=== PATIENT | female | born 1950 | race Caucasian/White ===

== ENCOUNTER 2017-03-11 14:11 | Emergency (ER) | payer MEDICARE, BC ==
[~2017-03-11] VITALS: Ht 162.6 cm; Wt 80.0 kg
[~2017-03-11 14:11] MED LIST: ASPIRIN CHEWABL81 MG PO; ASPIRIN LOW DOS81 MG PO; BACTRIM DS1 TAB PO; BENECAR PO; BENICAR40 MG OR; BENICAR40 MG PO; CIPRO XR500 MG PO; CLARITIN10 M1 PO; CLINDAMYCIN HC150 MG PO; DOCUSATE SOD100 MG PO; FIORICET PO; FIORINA1 PO; FISH OIL DOUB1200 MG PO; FISH OIL MAXI1200 M1; FISH OIL1000 MG; FISH OIL1000 MG PO; FLAGYL500 MG PO; FLEXERIL PO; FLONASE NASAL50 MCG; LISINOPRIL20 MG PO; LOPRESSOR25 M1 PO; LOPRESSOR50 MG PO; LYRICA75 MG PO; Levaquin OR; METOPROL TAR100 MG PO; METOPROL TAR50 MG PO; METOPROLOL50 MG OR; MICARDIS HCT PO; MIRALAX3350 N1 PO; MULTIVITAMIN PO; NEXIUM40 M1 PO; NITROQUICK0.3 MG SL; NORCO1 TA1 PO; ONDANSETRON4 MG OR; PCE500 MG OR; PROCARDIA XL30 MG PO; PROTONIX40 M2 OR; PROTONIX40 M2 PO; REGLAN10 MG OR; REGLAN5 MG OR; ROBITUSSIN200 MG/10 PO; SIMVASTATIN20 MG OR; STOOL SOFTENER100 MG OR; ZANTAC 150 MAX150 MG PO; ZITHROMAX250 MG PO; [UNRECOGNIZED DRUG - OTHER] PO
[2017-03-11 15:17] LABS: HEMATOCRIT 43.1 % (37.0-47.0); HEMOGLOBIN 14.8 g/dl (12.0-16.0); IMMATURE GRANULOCYTES 0.3 % (0.0-1.0); MEAN CELL VOLUME 91.1 fL CALC (80.0-100.0); MEAN CORPUSCULAR HGB 31.3 pG CALC (26.0-32.0); MEAN CORPUSCULAR HGB CONC 34.3 g/L CALC (32.0-36.0); NEUT# 4.92 thou/uL (2.00-7.15); RED BLOOD COUNT 4.73 mill/uL (4.20-5.60); RED CELL DISTRI WIDTH 12.6 % (11.5-15.5)
[2017-03-11 15:44] LABS: PROTHROMBIN TIME 11.2 SECONDS (9.0-12.5)
[2017-03-11 15:54] LABS: ALBUMIN 4.2 g/dL (3.2-5.0); ALKALINE PHOSPHATASE 115 u/l (38-126); AMYLASE 76 u/l (30-110); ANION GAP 15 (6-22 (CALC)); BILIRUBIN, TOTAL 0.5 mg/dL (0.0-1.4); BUN 10 mg/dL (8-23); BUN/CREATININE RATIO 14 (12-20 (CALC)); CALCIUM 9.6 mg/dL (8.4-10.2); CARBON DIOXIDE 24 mmol/l (22-30); CHLORIDE 106 mmol/l (95-108); CREATININE 0.7 mg/dL (0.5-1.0); ETHYL ALCOHOL 0 mg/dl (0-30); GFR > 60 ML/MIN (>=60 (CALC)); GFR FOR AFR.AMER. > 60 ML/MIN (>=60 (CALC)); GLUCOSE 105 mg/dL (82-115); LIPASE 171 u/l (23-300); POTASSIUM 3.8 mmol/l (3.5-5.1); SGOT/AST 37 u/l (9-36); SGPT/ALT 43 u/l (11-66); SODIUM 140 mmol/l (137-146); TOTAL PROTEIN 8.2 g/dL (6.3-8.2)
[2017-03-11 16:05] LABS: MYOGLOBIN 37 ng/mL (0 - 62)
[2017-03-11 16:08] LABS: URINE BILIRUBIN - DIPSTICK NEGATIVE (NEGATIVE); URINE BLOOD DIPSTICK TRACE-INTACT (NEGATIVE); URINE CLARITY CLEAR; URINE COLOR YELLOW; URINE GLUCOSE - DIPSTICK NEGATIVE (NEGATIVE); URINE KETONE NEGATIVE (NEGATIVE); URINE LEUK ESTERASE NEGATIVE (NEGATIVE); URINE NITRITE - DIPSTICK NEGATIVE (Negative); URINE PROTEIN - DIPSTICK NEGATIVE (NEG-TRACE); URINE UROBILINOGEN - DIPSTICK 0.2 E.U./dL (0.2)
[2017-03-11 16:50] VITALS: BP 163/77
== END 2017-03-11 16:55 | disposition home or self-care (01) ==
LOC: ED 14:11
PROVIDERS: Emergency Medicine
DX: K64.4 Residual hemorrhoidal skin tags (principal); I10 Essential (primary) hypertension; E10.9 Type 1 diabetes mellitus without complications; E78.5 Hyperlipidemia, unspecified; Z86.19 Personal history of other infectious and parasitic diseases

== ENCOUNTER 2017-08-05 05:46 | Day surgery (SDC) | payer MEDICARE, BC ==
[~2017-08-05] VITALS: Ht 162.6 cm; Wt 81.6 kg
[~2017-08-05 05:46] MED LIST changes: +OMEPRAZOLE20 M2 PO; +STOOL SOFTENER100 MG PO
[2017-08-05 08:17] VITALS: BP 142/63
== END 2017-08-05 08:37 | disposition home or self-care (01) ==
LOC: ENDO 05:46 → ORM 10:25 → ENDO 10:25 → ORM 11:15
PROVIDERS: ATTEND Surgery
PROC: 0DB78ZX Excision of Stomach, Pylorus, Via Natural or Artificial Opening Endoscopic, Diagnostic (ICD-10-PCS; principal; 2017-08-05)
PROC: 0DBP8ZX Excision of Rectum, Via Natural or Artificial Opening Endoscopic, Diagnostic (ICD-10-PCS; 2017-08-05)
DX: R10.13 Epigastric pain (principal); K21.9 Gastro-esophageal reflux disease without esophagitis; Z12.11 Encounter for screening for malignant neoplasm of colon; K29.50 Unspecified chronic gastritis without bleeding; K64.4 Residual hemorrhoidal skin tags; K62.89 Other specified diseases of anus and rectum; I10 Essential (primary) hypertension

== ENCOUNTER → 2018-09-22 | Outpatient (REF) | payer MEDICARE, BC ==
[2018-09-22 11:35] VITALS: BP 201/101
== END | disposition home or self-care (01) ==
LOC: STRESS 09:22 → NUCMED 09:45
PROVIDERS: ATTEND Internal Medicine
DX: I20.9 Angina pectoris, unspecified (principal); E11.9 Type 2 diabetes mellitus without complications; I10 Essential (primary) hypertension
CPT/HCPCS: A9502; J0706; J2785

== ENCOUNTER 2019-02-19 12:26 | Emergency (ER) | payer MEDICARE, BC ==
[~2019-02-19] VITALS: Ht 162.6 cm; Wt 82.0 kg
[2019-02-19] MEDS ORDERED: VITAMIN D1000 UNIT PO (12:45)
[2019-02-19] MEDS ORDERED: NAPROXEN500 MG PO (14:16)
[2019-02-19 14:47] VITALS: BP 148/69
== END 2019-02-19 15:00 | disposition home or self-care (01) ==
LOC: ED 12:26
DX: S33.5XXA Sprain of ligaments of lumbar spine, initial encounter (principal); S81.812A Laceration without foreign body, left lower leg, initial encounter; W17.89XA Other fall from one level to another, initial encounter; Y93.89 Activity, other specified; Y92.009 Unspecified place in unspecified non-institutional (private) residence as the place of occurrence of the external cause; R51 Headache

== ENCOUNTER 2019-03-14 12:23 | Emergency (ER) | payer MEDICARE, BC ==
[~2019-03-14] VITALS: Ht 162.6 cm; Wt 85.0 kg
[~2019-03-14 12:23] MED LIST changes: +NAPROXEN500 MG PO; +VITAMIN D1000 UNIT PO
[2019-03-14 13:56] LABS: HEMATOCRIT 42.2 % (37.0-47.0); HEMOGLOBIN 14.6 g/dl (12.0-16.0); IMMATURE GRANULOCYTES 0.6 % (0.0-5.0); MEAN CELL VOLUME 91.9 fL CALC (80.0-100.0); MEAN CORPUSCULAR HGB 31.8 pG CALC (26.0-32.0); MEAN CORPUSCULAR HGB CONC 34.6 g/L CALC (32.0-36.0); RED BLOOD COUNT 4.59 mill/uL (4.20-5.60); RED CELL DISTRI WIDTH 13.2 % (11.5-15.5)
[2019-03-14 14:52] LABS: ALBUMIN 4.1 g/dL (3.2-5.0); ALKALINE PHOSPHATASE 137 u/l (38-126); ANION GAP 14 (6-22 (CALC)); BUN 12 mg/dL (8-23); BUN/CREATININE RATIO 19 (12-20 (CALC)); CARBON DIOXIDE 22 mmol/l (22-30); CHLORIDE 104 mmol/l (95-108); CREATININE 0.6 mg/dL (0.5-1.0); GFR > 60 ML/MIN (>=60 (CALC)); GFR FOR AFR.AMER. > 60 ML/MIN (>=60 (CALC)); POTASSIUM 3.7 mmol/l (3.5-5.1); SGOT/AST 46 u/l (9-36); SODIUM 137 mmol/l (137-146); TOTAL PROTEIN 7.8 g/dL (6.3-8.2)
[2019-03-14 14:58] LABS: BILIRUBIN, TOTAL 0.9 mg/dL (0.0-1.4)
[2019-03-14 16:51] LABS: URINE BILIRUBIN - DIPSTICK NEGATIVE (NEGATIVE); URINE BLOOD DIPSTICK SMALL (NEGATIVE); URINE COLOR YELLOW; URINE GLUCOSE - DIPSTICK NEGATIVE (NEGATIVE); URINE KETONE NEGATIVE (NEGATIVE); URINE LEUK ESTERASE NEGATIVE (NEGATIVE); URINE NITRITE - DIPSTICK NEGATIVE (Negative); URINE PROTEIN - DIPSTICK NEGATIVE (NEG-TRACE); URINE UROBILINOGEN - DIPSTICK 0.2 E.U./dL (0.2)
[2019-03-14] MEDS ORDERED: ZOFRAN4 MG/TAB PO (16:58)
[2019-03-14] MEDS ORDERED: DICYCLOMINE HYD10 MG PO (16:58)
[2019-03-14] MEDS ORDERED: CIPROFLOXACN500 MG PO (16:58)
[2019-03-14 16:59] LABS: URINE SQUAMOUS EPITHELIAL CELL FEW EPI/hpf (0-FEW); URINE WBC 0-2 WBC/hpf (0-5)
[2019-03-14 17:40] VITALS: BP 151/61
== END 2019-03-14 17:40 | disposition home or self-care (01) ==
LOC: ED 12:23
PROVIDERS: Emergency Medicine
DX: K52.9 Noninfective gastroenteritis and colitis, unspecified (principal); R11.2 Nausea with vomiting, unspecified; R19.7 Diarrhea, unspecified; R50.9 Fever, unspecified; R05 Cough; R00.0 Tachycardia, unspecified
CPT/HCPCS: J0131

== ENCOUNTER 2020-07-09 07:45 | Emergency (ER) | payer MEDICARE, BC ==
[~2020-07-09] VITALS: Ht 160 cm; Wt 79.5 kg
[~2020-07-09 07:45] MED LIST changes: +CIPROFLOXACN500 MG PO; +DICYCLOMINE HYD10 MG PO; +ZOFRAN4 MG/TAB PO
[2020-07-09 08:37] LABS: URINE BLOOD DIPSTICK TRACE-LYSED (NEGATIVE); URINE GLUCOSE - DIPSTICK >=1000 mg/dL (NEGATIVE); URINE KETONE 15 mg/dL (NEGATIVE); URINE LEUK ESTERASE NEGATIVE (NEGATIVE); URINE NITRITE - DIPSTICK NEGATIVE (Negative); URINE PH 5.5 (4.5-8.0); URINE PROTEIN - DIPSTICK TRACE mg/dL (NEG-TRACE); URINE SPECIFIC GRAVITY 1.025; URINE UROBILINOGEN - DIPSTICK 0.2 E.U./dL (0.2)
[2020-07-09 08:39] LABS: URINE BILIRUBIN - DIPSTICK SMALL (NEGATIVE); URINE COLOR DK. YELLOW
[2020-07-09 09:25] LABS: HEMOGLOBIN 14.8 g/dl (12.0-16.0); IMMATURE GRANULOCYTES 0.3 % (0.0-5.0); MEAN CELL VOLUME 93.2 fL CALC (80.0-100.0); MEAN CORPUSCULAR HGB 30.6 pG CALC (26.0-32.0); MEAN CORPUSCULAR HGB CONC 32.9 g/dL CAL (32.0-36.0); NEUT# 6.6 thou/uL (2.00-7.15); RED BLOOD COUNT 4.83 mill/uL (4.20-5.60); RED CELL DISTRI WIDTH 13.2 % (11.5-15.5)
[2020-07-09 09:47] LABS: ALBUMIN 3.9 g/dL (3.2-5.0); ALKALINE PHOSPHATASE 93 u/l (38-126); AMYLASE 87 u/l (30-110); BUN 13 mg/dL (8-23); BUN/CREATININE RATIO 15 (12-20 (CALC)); CHLORIDE 107 mmol/l (95-108); CREATININE 0.8 mg/dL (0.5-1.0); GFR > 60 ML/MIN (>=60 (CALC)); GFR FOR AFR.AMER. > 60 ML/MIN (>=60 (CALC)); LIPASE 299 u/l (23-300); POTASSIUM 4.2 mmol/l (3.5-5.1); SGOT/AST 42 u/l (9-36); SODIUM 135 mmol/l (137-146); TOTAL PROTEIN 7.6 g/dL (6.3-8.2)
[2020-07-09 09:48] LABS: ANION GAP 12 (6-22 (CALC)); BILIRUBIN, TOTAL 1.3 mg/dL (0.0-1.4); CARBON DIOXIDE 20 mmol/l (22-30)
[2020-07-09] MEDS ORDERED: OMEPRAZOLE10 MG PO (09:51)
[2020-07-09] MEDS ORDERED: FARXIGA5 MG PO (09:51)
[2020-07-09] MEDS ORDERED: MAGNESIUM 250 M1 TAB PO (09:52)
[2020-07-09] MEDS ORDERED: B121000 MCG PO (09:58)
[2020-07-09] MEDS ORDERED: CALCIUM + D PO (09:59)
[2020-07-09] MEDS ORDERED: ONDANSETRON4 MG PO (11:23)
[2020-07-09] MEDS ORDERED: ULTRAM50 M1 PO (11:23)
[2020-07-09 11:35] VITALS: BP 152/66
== END 2020-07-09 11:35 | disposition home or self-care (01) ==
LOC: ED 07:45
PROVIDERS: Emergency Medicine
DX: R10.32 Left lower quadrant pain (principal); G43.909 Migraine, unspecified, not intractable, without status migrainosus; M47.816 Spondylosis without myelopathy or radiculopathy, lumbar region; E11.9 Type 2 diabetes mellitus without complications; Z20.828 Contact with and (suspected) exposure to other viral communicable diseases
CPT/HCPCS: Q9967

== ENCOUNTER 2021-11-26 07:15 | Day surgery (SDC) | payer MEDICARE, BC ==
[~2021-11-26] VITALS: Ht 162.6 cm; Wt 84.4 kg
[~2021-11-26 07:15] MED LIST changes: +B121000 MCG PO; +CALCIUM + D PO; +FARXIGA5 MG PO; +HYDROCHLOROTH12.5 M1 PO; +LANTUS100 UNIT; +LATANOPROST0.005 % OP; +MAGNESIUM 250 M1 TAB PO; +OMEPRAZOLE10 MG PO; +ONDANSETRON4 MG PO; +OZEMPIC 8 MG/3M1 INJ; +ULTRAM50 M1 PO
[2021-11-26] MEDS ORDERED: TRAMADOL HCL50 MG PO (09:28)
[2021-11-26] MEDS ORDERED: ONDANSETRON4 MG PO (09:28)
[2021-11-26 11:04] VITALS: BP 134/86
== END 2021-11-26 10:48 | disposition home or self-care (01) ==
LOC: ORM 07:15
PROVIDERS: ATTEND Surgery
PROC: 0WUF0JZ Supplement Abdominal Wall with Synthetic Substitute, Open Approach (ICD-10-PCS; principal; 2021-11-26)
DX: K42.9 Umbilical hernia without obstruction or gangrene (principal); I10 Essential (primary) hypertension; E11.9 Type 2 diabetes mellitus without complications; Z79.4 Long term (current) use of insulin

== ENCOUNTER 2021-12-15 20:46 | Observation (INO) | payer MEDICARE, BC ==
[~2021-12-15] VITALS: Ht 162.6 cm; Wt 84.0 kg
[~2021-12-15 20:46] MED LIST changes: -OZEMPIC 8 MG/3M1 INJ; +OZEMPIC 8 MG/3M1 INJ IJ; +STOOL SOFTENER100 M1 PO; -STOOL SOFTENER100 MG PO; +TRAMADOL HCL50 MG PO
[2021-12-15 21:02] VITALS: BP 143/100
[2021-12-15 21:40] LABS: HEMATOCRIT 42.7 % (37.0-47.0); HEMOGLOBIN 14.7 g/dl (12.0-16.0); IMMATURE GRANULOCYTES 0.1 % (0.0-5.0); MEAN CELL VOLUME 93.4 fL CALC (80.0-100.0); MEAN CORPUSCULAR HGB 32.2 pG CALC (26.0-32.0); MEAN CORPUSCULAR HGB CONC 34.4 g/dL CAL (32.0-36.0); NEUT# 5.63 thou/uL (2.00-7.15); RED BLOOD COUNT 4.57 mill/uL (4.20-5.60); RED CELL DISTRI WIDTH 13.1 % (11.5-15.5)
[2021-12-15 21:57] LABS: ALKALINE PHOSPHATASE 123 u/l (38-126); ANION GAP 14 (6-22 (CALC)); BILIRUBIN, TOTAL 0.6 mg/dL (0.0-1.4); BUN 13 mg/dL (8-23); BUN/CREATININE RATIO 16 (12-20 (CALC)); CARBON DIOXIDE 26 mmol/l (22-30); CHLORIDE 103 mmol/l (95-108); CREATININE 0.8 mg/dL (0.5-1.0); GFR FOR AFR.AMER. > 60 ML/MIN (>=60 (CALC)); GFR OTHER RACES > 60 ML/MIN (>=60 (CALC)); POTASSIUM 3.4 mmol/l (3.5-5.1); SGOT/AST 41 u/l (9-36); SODIUM 139 mmol/l (137-146)
[2021-12-15 22:27] LABS: URINE BILIRUBIN - DIPSTICK NEGATIVE (NEGATIVE); URINE BLOOD DIPSTICK TRACE-INTACT (NEGATIVE); URINE COLOR YELLOW; URINE GLUCOSE - DIPSTICK NEGATIVE (NEGATIVE); URINE KETONE TRACE mg/dL (NEGATIVE); URINE LEUK ESTERASE TRACE (NEGATIVE); URINE PH 6.5 (4.5-8.0); URINE PROTEIN - DIPSTICK 30 mg/dL (NEG-TRACE); URINE SPECIFIC GRAVITY 1.025; URINE UROBILINOGEN - DIPSTICK 0.2 E.U./dL (0.2)
[2021-12-15 22:43] LABS: URINE NITRITE - DIPSTICK NEGATIVE (Negative)
[2021-12-15 22:57] LABS: URINE BACTERIA FEW hpf; URINE MUCUS FEW hpf (NONE-FEW); URINE SQUAMOUS EPITHELIAL CELL FEW EPI/hpf (0-FEW)
[2021-12-15 23:50] VITALS: BP 187/67
[2021-12-16 03:45] VITALS: BP 151/75
[2021-12-16 06:44] LABS: HEMOGLOBIN 13.1 g/dl (12.0-16.0); MEAN CELL VOLUME 93.1 fL CALC (80.0-100.0); MEAN CORPUSCULAR HGB 32.1 pG CALC (26.0-32.0); MEAN CORPUSCULAR HGB CONC 34.5 g/dL CAL (32.0-36.0); RED BLOOD COUNT 4.08 mill/uL (4.20-5.60); RED CELL DISTRI WIDTH 12.9 % (11.5-15.5)
[2021-12-16 06:58] LABS: ANION GAP 13 (6-22 (CALC)); BUN 12 mg/dL (8-23); BUN/CREATININE RATIO 19 (12-20 (CALC)); CARBON DIOXIDE 25 mmol/l (22-30); CHLORIDE 104 mmol/l (95-108); CREATININE 0.6 mg/dL (0.5-1.0); GFR FOR AFR.AMER. > 60 ML/MIN (>=60 (CALC)); GFR OTHER RACES > 60 ML/MIN (>=60 (CALC)); MAGNESIUM 1.9 mg/dL (1.6-2.3); POTASSIUM 3.4 mmol/l (3.5-5.1); SODIUM 138 mmol/l (137-146)
[2021-12-16 07:50] VITALS: BP 145/65
[2021-12-16] MEDS ORDERED: DULCOLAX10 MG RE (12:24)
[2021-12-16 15:16] VITALS: BP 131/62
== END 2021-12-16 16:03 | disposition home or self-care (01) ==
LOC: ED 20:46 → MS2 22:57
PROVIDERS: Family Medicine; Hospitalist; ADMIT Internal Medicine; ATTEND Internal Medicine
DX: K59.09 Other constipation (principal); I10 Essential (primary) hypertension; E11.9 Type 2 diabetes mellitus without complications; E78.5 Hyperlipidemia, unspecified; Z79.4 Long term (current) use of insulin; Z20.822 Contact with and (suspected) exposure to COVID-19
CPT/HCPCS: G0378; J1650

== ENCOUNTER 2022-02-08 20:50 | Emergency (ER) | payer MEDICARE, BC ==
[~2022-02-08] VITALS: Ht 162.6 cm; Wt 81.8 kg
[~2022-02-08 20:50] MED LIST changes: +DULCOLAX10 MG RE
[2022-02-08 21:15] VITALS: BP 207/104
[2022-02-08 21:31] VITALS: BP 182/90
[2022-02-08 21:49] VITALS: BP 198/79
[2022-02-08 23:25] VITALS: BP 168/79
== END 2022-02-08 23:28 | disposition home or self-care (01) ==
LOC: ED 20:50
DX: S01.312A Laceration without foreign body of left ear, initial encounter (principal); S16.1XXA Strain of muscle, fascia and tendon at neck level, initial encounter; I10 Essential (primary) hypertension; E11.9 Type 2 diabetes mellitus without complications; W01.190A Fall on same level from slipping, tripping and stumbling with subsequent striking against furniture, initial encounter; Y93.89 Activity, other specified; Y92.009 Unspecified place in unspecified non-institutional (private) residence as the place of occurrence of the external cause; Z79.4 Long term (current) use of insulin

== ENCOUNTER 2023-09-17 00:23 | Emergency (ER) | payer MEDICARE, BC | END 2023-09-17 00:57 | disposition left against medical advice (07) | LOC: ED 00:23 → LWOBS 00:57 → ED 00:57 | DX: Z53.21 Procedure and treatment not carried out due to patient leaving prior to being seen by health care provider (principal) ==